=== PATIENT | female | born 1980 | race Caucasian/White ===

== ENCOUNTER 2017-09-26 20:10 | Emergency (ER) | payer MEDICAID ==
[~2017-09-26] VITALS: Ht 154.9 cm; Wt 68.0 kg
[2017-09-26 20:10] VITALS: BP 123/76
--- NOTE | 2017-09-26 20:12 | NUR ---
Dr. Luna evaluating patient.
--- NOTE | 2017-09-26 20:13 | NUR ---
PT EDGAR ALS. TAKEN TO BED 2
--- NOTE | 2017-09-26 20:15 | NUR ---
PT BIB AMBULANCE .ALOC s/p sz, unknown duration, lowered to ground, no trauma . HOOKED PT ON BEDSIDE MONITOR, ON ROOM AIR, NO S/S OF RESPITRATORY DISTRESS NOTED. DENIES N/V/D; SKIN IS PINK/WARM/DRY; LUNGS CLEAR BL; HR EVEN AND REGULAR; PT DENIES ANY FEVER, CP, SOB, OR COUGH AT THIS TIME; PATIENT STATES PAIN OF 0/10 AT THIS TIME; VSS; PATIENT POSITIONED FOR COMFORT; HOB ELEVATED; BEDRAILS UP X2; BED DOWN. ER MD MADE AWARE OF PT STATUS.
[2017-09-26] MEDS ORDERED: NACL 0.9% 1,000 ML IV ONE (20:20)
[2017-09-26 20:55] LABS: BASOPHILS % (AUTO) 0.3 % (0.0-2.0); EOSINOPHILS % (AUTO) 0.1 % (0.0-4.0); HEMATOCRIT 36.3 % (36-48); HEMOGLOBIN 11.1 g/dL (12.0-16.0); LYMPHOCYTES # (AUTO) 2.5 K/uL (2.5-16.5); LYMPHOCYTES % (AUTO) 21.2 % (20.5-51.1); MEAN CORPUSCULAR HEMOGLOBIN 21 pg (27-31); MEAN CORPUSCULAR HGB CONC 31 g/dL (33-37); MEAN CORPUSCULAR VOLUME 69.1 fL (80-94); MONOCYTES # (AUTO) 0.7 K/uL (0.8-1.0); MONOCYTES % (AUTO) 5.5 % (1.7-9.3); NEUTROPHILS # (AUTO) 8.6 K/uL (1.8-7.7); NEUTROPHILS % (AUTO) 72.9 % (42.2-75.2); PLATELET COUNT (AUTO) 384 K/uL (140-450); RED BLOOD CELL COUNT(AUTO) 5.26 MIL/uL (4.20-5.40); RED CELL DISTRIBUTION WIDTH 16.4 % (11.6-13.7); WHITE BLOOD COUNT (AUTO) 11.8 K/uL (4.8-10.8)
[2017-09-26 21:16] LABS: ANION GAP 16.8 (8-16); CARBON DIOXIDE 21.5 mmol/L (21-32); CHLORIDE 100 mmol/L (98-107); CREATININE 0.6 mg/dL (0.6-1.3); GFR ARICAN-AMERICAN 144 mL/min (>90); GLUCOSE 316 mg/dL (74-106); POTASSIUM 3.3 mmol/L (3.5-5.1); SODIUM SERUM 135 mmol/L (136-145); UREA NITROGEN, BLOOD 14 mg/dL (7-18)
[2017-09-26 21:17] LABS: PHENOBARBITAL 5 ug/ml (15-40)
[2017-09-26 21:23] LABS: ACETAMINOPHEN < 0.5 ug/ml (10-30); ALBUMIN 3.2 g/dL (3.4-5.0); ASPARTATE AMINOTRANSFERASE 11 U/L (15-37); SALICYLATE < 2.8 mg/dL (2.8-20.0); TOTAL BILIRUBIN 0.2 mg/dL (0.0-1.0)
[2017-09-26] MEDS ORDERED: PHENobarbital 65 MG/ML VIAL IV ONE (21:25)
--- NOTE | 2017-09-26 21:57 | NUR ---
Dr. Luna re-evaluating patient at bedside.
[2017-09-26 22:20] VITALS: BP 125/72
--- NOTE | 2017-09-26 22:20 | NUR ---
Patient discharged with v/s stable. Written and verbal after care instructions given and explained. Patient alert, oriented and verbalized understanding of instructions. Ambulatory with steady gait. All questions addressed prior to discharge. ID band removed. Patient advised to follow up with NEUROLOGIST, ADDRESS GIVEN, PRINTED BY DR. DICKINSON. Rx of PHENOBARBITAL given. Patient educated on indication of medication including possible reaction and side effects. Opportunity to ask questions provided and answered.
[2017-09-26 22:22] LABS: BARBITURATE, URINE POS. ng/ml (NEG <=200); BENZODIAZEPINE, URINE NEG. ng/mL (NEG <=200); CANNABINOID, URINE NEG. ng/mL (NEG <=50); COCAINE, URINE NEG. ng/mL (NEG <=300); OPIATE, URINE NEG. ng/mL (NEG <=2000); PHENCYCLIDINE SCREEN,URINE NEG. ng/mL (NEG <=25)
== END 2017-09-26 22:20 | disposition home or self-care (01) ==
LOC: MED 20:10
DX: R56.9 Unspecified convulsions (principal); E11.9 Type 2 diabetes mellitus without complications; Z88.8 Allergy status to other drugs, medicaments and biological substances
CPT/HCPCS: 36415; 80053; 80184; 80305; 81025; 85025; 93005; 96361; 96374; 99285; G0480; G0482; J2560

== ENCOUNTER 2019-03-25 15:01 | Emergency (ER) | payer MEDICAID ==
[~2019-03-25] VITALS: Ht 152.4 cm; Wt 81.6 kg
[2019-03-25 15:03] VITALS: BP 148/94
--- NOTE | 2019-03-25 15:09 | NUR ---
38/F [facility] FOR WITNESSED SEIZURE OF UNKNOWN LENGTH OF TIME. LOC AND FELL ONTO GROUND. MAY HAVE HIT HEAD BUT PT IS ONLY C/O RT SIDE BACK PAIN 02/03 AT THIS TIME. STATES HIT RT BACK DURING FALL. NO ORAL TRAUMA NOTED. IN C-SPINE COLLAR NOW. DENIES BOWEL AND BLADDER INCONTINENCE. HX- SZ RX- PHENOBARBITAL, TUMS
[2019-03-25] MEDS ORDERED: NACL 0.9% 1,000 ML IV ONE (15:15)
[2019-03-25 15:53] LABS: HEMATOCRIT 47.2 % (36-48); HEMOGLOBIN 15.6 g/dL (12.0-16.0); MEAN CORPUSCULAR HEMOGLOBIN 28 pg (27-31); MEAN CORPUSCULAR HGB CONC 33 g/dL (33-37); MEAN CORPUSCULAR VOLUME 85.8 fL (80-94); PLATELET COUNT (AUTO) 256 K/uL (140-450); RED CELL DISTRIBUTION WIDTH 14.2 % (11.6-13.7); WHITE BLOOD COUNT (AUTO) 10.4 K/uL (4.8-10.8)
[2019-03-25 15:54] LABS: BASOPHILS # (AUTO) 0.1 K/uL (0.00-0.22); BASOPHILS % (AUTO) 1.1 % (0.0-2.0); EOSINOPHILS % (AUTO) 0.2 % (0.0-4.0); LYMPHOCYTES # (AUTO) 2.5 K/uL (2.5-16.5); LYMPHOCYTES % (AUTO) 23.9 % (20.5-51.1); MONOCYTES # (AUTO) 0.5 K/uL (0.8-1.0); MONOCYTES % (AUTO) 4.8 % (1.7-9.3); NEUTROPHILS # (AUTO) 7.3 K/uL (1.8-7.7)
[2019-03-25 16:03] LABS: ANION GAP 18.2 (8-16); CARBON DIOXIDE 20.4 mmol/L (21-32); CHLORIDE 100 mmol/L (98-107); GLUCOSE 389 mg/dL (74-106); POTASSIUM 3.6 mmol/L (3.5-5.1); SODIUM SERUM 135 mmol/L (136-145)
[2019-03-25 16:04] LABS: ALBUMIN 3.2 g/dL (3.4-5.0); ASPARTATE AMINOTRANSFERASE 11 U/L (15-37); CREATININE 0.4 mg/dL (0.6-1.3); GFR ARICAN-AMERICAN 227 mL/min (>90); TOTAL BILIRUBIN 0.3 mg/dL (0.0-1.0); UREA NITROGEN, BLOOD 14 mg/dL (7-18)
[2019-03-25 16:05] LABS: ACETAMINOPHEN < 0.5 ug/ml (10-30); SALICYLATE < 2.8 mg/dL (2.8-20.0)
--- NOTE | 2019-03-25 16:45 | NUR ---
US AT BEDSIDE. UNABLE TO OBTAIN IV ACCESS AT THIS TIME. WILL TRY AGAIN AFTER US COMPLETES.
[2019-03-25 17:27] LABS: APPEARANCE,URINE HAZY (CLEAR); BILIRUBIN,URINE NEGATIVE (NEGATIVE); BLOOD, URINE NEGATIVE (NEGATIVE); COLOR,URINE YELLOW (YELLOW); LEUKOCYTE ESTERASE ,URINE NEGATIVE (NEGATIVE); NITRITE, URINE NEGATIVE (NEGATIVE); PH,URINE 5.5 (5.0-9.0); UGLUCOSE 3+ (NEGATIVE)
[2019-03-25 17:38] LABS: BARBITURATE, URINE POSITIVE ng/ml (NEG <=200)
[2019-03-25 17:39] LABS: BENZODIAZEPINE, URINE NEGATIVE ng/mL (NEG <=200); CANNABINOID, URINE NEGATIVE ng/mL (NEG <=50); COCAINE, URINE NEGATIVE ng/mL (NEG <=300); OPIATE, URINE NEGATIVE ng/mL (NEG <=2000); PHENCYCLIDINE SCREEN,URINE NEGATIVE ng/mL (NEG <=25)
[2019-03-25] MEDS ORDERED: PHENobarbital 65 MG/ML VIAL IM ONE (18:35)
[2019-03-25 19:08] VITALS: BP 123/86
--- NOTE | 2019-03-25 19:08 | NUR ---
Patient discharged with v/s stable. Written and verbal after care instructions given and explained. Patient verbalized understanding. Ambulatory with steady gait. All questions addressed prior to discharge. Advised to follow up with PMD.
== END 2019-03-25 19:08 | disposition home or self-care (01) ==
LOC: MED 15:01
DX: G40.89 Other seizures (principal); E11.9 Type 2 diabetes mellitus without complications; Z88.8 Allergy status to other drugs, medicaments and biological substances
CPT/HCPCS: 36415; 76801; 80053; 80184; 80305; 81003; 84702; 85025; 86900; 86901; 93005; 96372; 99284; G0480; G0482; J2560; J7030; Q0092

== ENCOUNTER 2019-07-18 18:11 | Inpatient (IN) | payer MEDICAID ==
[~2019-07-18] VITALS: Ht 165.1 cm; Wt 81.6 kg
[2019-07-18] MEDS ORDERED: LORazepam 2 MG/ML VIAL IVP ONE ×2 (18:25→19:00)
[2019-07-18] MEDS ORDERED: NACL 0.9% 1,000 ML IV ONE ×2 (18:25→19:35)
[2019-07-18 18:27] VITALS: BP 167/83
--- NOTE | 2019-07-18 18:35 | NUR ---
38YO F BIBA DUE TO ALOC. PT WAS SAID TO BE FOUND BY WITNESSES IN THE PARKING LOT OF [employer] SEIZING. ON THE WAY TO ER, [facility] WITNESSED TONIC CLONIC SEIZURE LASTING FOR 40 SECS. BS= 144. VS 160/90, HR 137, SAT 99% @15L O2. IN ER, PT APPEARS TO BE ON POST ICTAL STATE, RESPONDS TO STERNAL RUB.
--- NOTE | 2019-07-18 18:39 | NUR ---
LAB AT BEDSIDE.
[2019-07-18 18:55] LABS: BASOPHILS # (AUTO) 0.2 K/uL (0.00-0.22); BASOPHILS % (AUTO) 1.2 % (0.0-2.0); EOSINOPHILS % (AUTO) 0.1 % (0.0-4.0); HEMATOCRIT 47.5 % (36-48); HEMOGLOBIN 15.4 g/dL (12.0-16.0); LYMPHOCYTES # (AUTO) 2.9 K/uL (2.5-16.5); LYMPHOCYTES % (AUTO) 22.2 % (20.5-51.1); MEAN CORPUSCULAR HEMOGLOBIN 27 pg (27-31); MEAN CORPUSCULAR HGB CONC 32 g/dL (33-37); MEAN CORPUSCULAR VOLUME 84.6 fL (80-94); MONOCYTES # (AUTO) 0.5 K/uL (0.8-1.0); MONOCYTES % (AUTO) 3.7 % (1.7-9.3); NEUTROPHILS # (AUTO) 9.5 K/uL (1.8-7.7); NEUTROPHILS % (AUTO) 72.8 % (42.2-75.2); PLATELET COUNT (AUTO) 240 K/uL (140-450); RED BLOOD CELL COUNT(AUTO) 5.62 MIL/uL (4.20-5.40); RED CELL DISTRIBUTION WIDTH 14.4 % (11.6-13.7); WHITE BLOOD COUNT (AUTO) 13.1 K/uL (4.8-10.8)
--- NOTE | 2019-07-18 19:00 | NUR ---
REPORT RECEIVED FROM SHAWN MOORE
--- NOTE | 2019-07-18 19:10 | NUR ---
STRAIGHT CATH ATTEMPTED; UNSUCCESSFUL. IV ATTEMPT X2 UNSUCCESSFUL.
[2019-07-18 19:18] LABS: ALBUMIN 3.4 g/dL (3.4-5.0); ANION GAP 25.5 (8-16); ASPARTATE AMINOTRANSFERASE 11 U/L (15-37); CARBON DIOXIDE 14.6 mmol/L (21-32); CHLORIDE 97 mmol/L (98-107); CREATININE 0.9 mg/dL (0.6-1.3); GFR ARICAN-AMERICAN 89 mL/min (>90); POTASSIUM 3.1 mmol/L (3.5-5.1); SODIUM SERUM 134 mmol/L (136-145); TOTAL BILIRUBIN 0.2 mg/dL (0.0-1.0); UREA NITROGEN, BLOOD 9 mg/dL (7-18)
[2019-07-18 19:25] LABS: ACETAMINOPHEN < 0.5 ug/ml (10-30); GLUCOSE 459 mg/dL (74-106); SALICYLATE < 2.8 mg/dL (2.8-20.0)
[2019-07-18] MEDS ORDERED: INSULIN REGULAR, HUMAN 100 UNIT/ML VIAL IVP ONE (19:35)
[2019-07-18 19:48] LABS: PHENOBARBITAL 4 ug/ml (15-40)
--- NOTE | 2019-07-18 19:50 | NUR ---
STRAIGHT CATH; URINE OBTAINED; SENT TO LAB
--- NOTE | 2019-07-18 19:58 | NUR ---
X-Ray at bedside.
[2019-07-18 20:13] LABS: APPEARANCE,URINE CLEAR (CLEAR); BILIRUBIN,URINE NEGATIVE (NEGATIVE); BLOOD, URINE TRACE-I (NEGATIVE); COLOR,URINE YELLOW (YELLOW); LEUKOCYTE ESTERASE ,URINE NEGATIVE (NEGATIVE); NITRITE, URINE NEGATIVE (NEGATIVE); PH,URINE 5.5 (5.0-9.0); UGLUCOSE 3+ (NEGATIVE)
[2019-07-18] MEDS: NACL 0.9% 1,000 ML IV SCH (20:13)
[2019-07-18] MEDS ORDERED: DEXTROSE 50% 50 ML SYR IVP PRN (20:15)
[2019-07-18] MEDS ORDERED: ONDANSETRON 4 MG/2 ML VIAL IVP PRN (20:15)
[2019-07-18] MEDS ORDERED: ACETAMINOPHEN 325 MG TAB PO PRN (20:15)
--- NOTE | 2019-07-18 20:15 | NUR ---
12 UNITS SQ INSULIN GIVEN; WILL CONTINUE TO MONITOR
--- NOTE | 2019-07-18 20:20 | NUR ---
EJ ATTEMPTED X2; UNSUCCESSFUL
--- NOTE | 2019-07-18 20:30 | NUR ---
IV ATTEMPTED X2. SUCCESSFUL ATTEMPT IN LEFT FOOT. NS IVF BOLUS STARTED.
[2019-07-18 20:32] LABS: BARBITURATE, URINE NEGATIVE ng/ml (NEG <=200); BENZODIAZEPINE, URINE NEGATIVE ng/mL (NEG <=200); CANNABINOID, URINE NEGATIVE ng/mL (NEG <=50); COCAINE, URINE NEGATIVE ng/mL (NEG <=300); OPIATE, URINE NEGATIVE ng/mL (NEG <=2000); PHENCYCLIDINE SCREEN,URINE NEGATIVE ng/mL (NEG <=25); RBC,URINE 0-5 /HPF (0-5); WBC,URINE NONE SEEN /HPF (0-5)
--- NOTE | 2019-07-18 20:48 | NUR ---
UNABLE TO OBTAINE AT THIS TIME. PT CONFUSED AND UNABLE TO ANSWER QUESTIONS APPROPRIATELY.
[2019-07-18 21:00] LABS: PROTHROMBIN TIME 10.5 secs (10.8-13.4)
[2019-07-18] MEDS: DOCUSATE SODIUM 100 MG GELCAP PO SCH (21:00)
--- NOTE | 2019-07-18 21:00 | NUR ---
PATIENT IS AWAKE AND IN STABLE CONDITION. NO C/O PAIN. NO S/SX ACUTE DISTRESS. SEIZURE PRECAUTIONS IN PLACE. CALL LIGHT WITHIN REACH. WILL CONTINUE TO MONITOR. Addendum: 07/19/19 at 2342 by Simi Chisholm RN WRONG DATE. AMEND TO 07/18/19.
[2019-07-18 21:05] LABS: FREE T4 (FREE THYROXINE) 1.07 ng/dL (0.76-1.46); MAGNESIUM 1.6 mg/dL (1.8-2.4); PHOSPHORUS 3.7 mg/dL (2.5-4.9); THYROID STIMULATING HORMONE 1.53 uIU/mL (0.34-3.74)
--- NOTE | 2019-07-18 21:21 | NUR ---
PT RETURN FROM CT
--- NOTE | 2019-07-18 21:30 | NUR ---
POC BG 282
[2019-07-18] MEDS ORDERED: PHEN-1438 PO ×2 (21:51→23:46)
--- NOTE | 2019-07-18 21:55 | NUR ---
RECEIVED PATIENT FROM ER VIA GURNEY. RESPIRATIONS EVEN, UNLABORED. NO S/SX RESPIRATORY DISTRESS. IV SITE TO LEFT FOOT 22G PATENT/INTACT, INFUSING FLUIDS WELL. IV SITE NOTED TO RIGHT HAND 22G, PATENT/INTACT. SKIN ASSESSMENT COMPLETE. SKIN IS INTACT. MRSA SCREEN COMPLETED. ORIENTED PATIENT TO ROOM, STAFF AND CALL LIGHT. NO C/O PAIN. NO S/SX ACUTE DISTRESS. SEIZURE PRECAUTIONS IN PLACE. SAFETY PRECAUTIONS IN PLACE. CALL LIGHT WITHIN REACH. WILL CONTINUE TO MONITOR.
--- NOTE | 2019-07-18 22:05 | NUR ---
Patient will be admitted to care of [facility]. Admited to TELEMETRY. Will go to room 124A. Belongings list completed. Report to SHAWN HERNANDEZ.
[2019-07-18] MEDS ORDERED: hydrALAZINE 20 MG/ML VIAL IVP SCH (22:15)
[2019-07-18] MEDS ORDERED: levETIRAcetam 1,000 MG in NACL 0.9% 100 ML IV SCH (22:15)
[2019-07-18] MEDS: BLOOD GLUCOSE MONITORING 1 DEV DEV FS SCH (22:50)
[2019-07-18] MEDS: INSULIN LISPRO SLIDING SCALE 100 UNITS/ML VIAL SUBQ PRN (22:50)
--- NOTE | 2019-07-18 23:30 | NUR ---
PATIENT IN STABLE CONDITION. NO C/O PAIN. NO S/SX ACUTE DISTRESS. CALL LIGHT WITHIN REACH. WILL CONTINUE TO MONITOR.
[2019-07-18] MEDS ORDERED: levETIRAcetam 100 MG/ML VIAL IV ONE (23:45)
[2019-07-18] MEDS ORDERED: GLIP10TA3 PO (23:46)
[2019-07-18] MEDS ORDERED: FURO-572 PO ×2 (23:46→23:51)
[2019-07-18] MEDS ORDERED: POTASSIUM CHLORIDE 10 MEQ TABER PO SCH (23:50)
[2019-07-19] VITALS: BP 140/79
[2019-07-19 00:25] LABS: BASOPHILS # (AUTO) 0.1 K/uL (0.00-0.22); EOSINOPHILS % (AUTO) 0.3 % (0.0-4.0); HEMATOCRIT 41.7 % (36-48); HEMOGLOBIN 13.7 g/dL (12.0-16.0); LYMPHOCYTES % (AUTO) 23.1 % (20.5-51.1); MEAN CORPUSCULAR HEMOGLOBIN 27 pg (27-31); MEAN CORPUSCULAR HGB CONC 33 g/dL (33-37); MEAN CORPUSCULAR VOLUME 83.3 fL (80-94); MONOCYTES # (AUTO) 0.6 K/uL (0.8-1.0); MONOCYTES % (AUTO) 4.7 % (1.7-9.3); NEUTROPHILS # (AUTO) 9.3 K/uL (1.8-7.7); NEUTROPHILS % (AUTO) 70.9 % (42.2-75.2); PLATELET COUNT (AUTO) 241 K/uL (140-450); RED BLOOD CELL COUNT(AUTO) 5.01 MIL/uL (4.20-5.40); RED CELL DISTRIBUTION WIDTH 14.4 % (11.6-13.7); WHITE BLOOD COUNT (AUTO) 13.2 K/uL (4.8-10.8)
[2019-07-19] MEDS: LISINOPRIL 20 MG TAB PO SCH ×2 (00:27→09:00)
[2019-07-19 00:38] LABS: ANION GAP 12.3 (8-16); CARBON DIOXIDE 23.8 mmol/L (21-32); CREATININE 0.4 mg/dL (0.6-1.3); POTASSIUM 3.1 mmol/L (3.5-5.1)
[2019-07-19 00:53] LABS: MAGNESIUM 1.6 mg/dL (1.8-2.4); PHOSPHORUS 2.6 mg/dL (2.5-4.9)
--- NOTE | 2019-07-19 01:05 | NUR ---
PATIENT ASLEEP AND IN STABLE CONDITION. NO C/O PAIN. NO S/SX ACUTE DISTRESS. CALL LIGHT WITHIN REACH. WILL CONTINUE TO MONITOR.
[2019-07-19] MEDS ORDERED: MAG SULF 2000 MG/WATER PREMIX 50 ML IV SCH (03:00)
--- NOTE | 2019-07-19 03:02 | NUR ---
MADE ROUNDS. PATIENT CURRENTLY ASLEEP AND IN STABLE CONDITION. NO C/O PAIN. NO S/SX ACUTE DISTRESS. CALL LIGHT WITHIN REACH. WILL CONTINUE TO MONITOR.
[2019-07-19 04:00] VITALS: BP 95/57
--- NOTE | 2019-07-19 05:05 | NUR ---
PATIENT PULLED OUT IV SITE RIGHT WRIST 24G. CANNULA INTACT. CHANGED IV FLUIDS TO LEFT FOOT 22G, INFUSING WELL. CALL LIGHT WITHIN REACH. WILL CONTINUE TO MONITOR.
[2019-07-19] MEDS: NACL 0.9% 1,000 ML IV SCH (05:39)
[2019-07-19 05:50] LABS: CHOL/HDL RATIO 5.8 (1-4.5); MAGNESIUM 1.8 mg/dL (1.8-2.4); PHOSPHORUS 3.3 mg/dL (2.5-4.9)
[2019-07-19 06:16] LABS: BASOPHILS # (AUTO) 0.1 K/uL (0.00-0.22); BASOPHILS % (AUTO) 0.8 % (0.0-2.0); EOSINOPHILS % (AUTO) 0.2 % (0.0-4.0); HEMATOCRIT 40.8 % (36-48); HEMOGLOBIN 13.5 g/dL (12.0-16.0); LYMPHOCYTES # (AUTO) 2.9 K/uL (2.5-16.5); LYMPHOCYTES % (AUTO) 26.1 % (20.5-51.1); MEAN CORPUSCULAR HEMOGLOBIN 28 pg (27-31); MEAN CORPUSCULAR HGB CONC 33 g/dL (33-37); MEAN CORPUSCULAR VOLUME 83.5 fL (80-94); MONOCYTES # (AUTO) 0.7 K/uL (0.8-1.0); MONOCYTES % (AUTO) 6.3 % (1.7-9.3); NEUTROPHILS # (AUTO) 7.3 K/uL (1.8-7.7); NEUTROPHILS % (AUTO) 66.6 % (42.2-75.2); PLATELET COUNT (AUTO) 242 K/uL (140-450); RED BLOOD CELL COUNT(AUTO) 4.88 MIL/uL (4.20-5.40); RED CELL DISTRIBUTION WIDTH 14.6 % (11.6-13.7); WHITE BLOOD COUNT (AUTO) 10.9 K/uL (4.8-10.8)
[2019-07-19 06:40] LABS: ANION GAP 14.5 (8-16); CARBON DIOXIDE 21.7 mmol/L (21-32); CREATININE 0.5 mg/dL (0.6-1.3); POTASSIUM 3.2 mmol/L (3.5-5.1)
[2019-07-19] MEDS: BLOOD GLUCOSE MONITORING 1 DEV DEV FS SCH ×4 (06:43→20:30)
[2019-07-19] MEDS: INSULIN LISPRO SLIDING SCALE 100 UNITS/ML VIAL SUBQ PRN ×4 (06:44→20:20)
--- NOTE | 2019-07-19 07:27 | NUR ---
ENDORSED PATIENT IN STABLE CONDITION TO AM SHIFT NURSE FOR CONTINUITY OF CARE.
--- NOTE | 2019-07-19 07:28 | NUR ---
RECEIVED REPORT FROM ICT SALES REPRESENTATIVE RN FOR CONTINUITY OF CARE. PT IS AAOX3, LETHARGIC BUT AROUSABLE TO LIGHT STIMULATION. PT ON RA SATING 98%. SKIN INTACT. DISCUSSED POC WITH PT AND PT VERBALIZED UNDERSTANDING. SAFETY MEASURES IN PLACE. WILL ROUND FREQUENTLY THROUGHOUT THE SHIFT.
[2019-07-19 08:00] VITALS: BP 100/63
--- NOTE | 2019-07-19 08:49 | NUR ---
PATIENT HAS BEEN SCREENED AND CATEGORIZED MODERATE NUTRITION RISK. PATIENT WILL BE SEEN WITHIN 3-5 DAYS OF ADMISSION. 07/21/19 07/23/[address]
[2019-07-19] MEDS: DOCUSATE SODIUM 100 MG GELCAP PO SCH ×2 (09:00→20:23)
[2019-07-19] MEDS ORDERED: levETIRAcetam 500 MG TAB PO SCH (09:00)
[2019-07-19] MEDS ORDERED: levETIRAcetam 1,000 MG in NACL 0.9% 100 ML IV SCH (09:00)
--- NOTE | 2019-07-19 09:12 | NUR ---
ADMINISTERED MORNING MEDS TO PT. PT TOLERATED WELL. ALL NEEDS MET. WILL CONTINUE TO ROUND ON PT. BE DIN LOW POSITION, CALL LIGHT WITHIN REACH.
[2019-07-19] MEDS: glipiZIDE ER 5 MG TABER PO SCH (09:32)
[2019-07-19] MEDS: PHENobarbital 30 MG TAB PO SCH ×2 (09:32→20:23)
[2019-07-19] MEDS: metFORMIN 500 MG TAB PO SCH ×2 (09:32→17:54)
[2019-07-19] MEDS ORDERED: POTASSIUM CHLORIDE 40 MEQ, LIDOCAINE MPF 1% 25 MG in NACL 0.9% 250 ML IV SCH (11:00)
--- NOTE | 2019-07-19 11:17 | NUR ---
DC PLANNING 38 YRS OLD FEMALE PATIENT WAS ADMITTED FROM HOME WITH A DX OF SEIZURE AND HHS. PT HAS A HX OF SZ DM AND HTN. CXRAY SHOWED NO ACUTE CARDIOPULMONARY PROCESS. STARTED IVF, IV LASIX AND KEPPRA IV. CONSULTED WITH NEUROLOGIST DR DELEON. DC PLAN TO GO HOME WHEN STABLE . CM TO FOLLOW.
--- NOTE | 2019-07-19 11:24 | NUR ---
PT RESTING IN BED. ALL NEEDS MET.
--- NOTE | 2019-07-19 11:32 | NUR ---
PT SEEMS MORE AWAKE. ABLE TO HOLD A CONVERSATION BETTER. ILL CONTINUE TO ROUND ON PT.
[2019-07-19 12:00] VITALS: BP 100/63
--- NOTE | 2019-07-19 13:41 | NUR ---
PT RESTING IN BED TALKING ON PHONE. ALL NEEDS MET. WILL CONTINUE TO ROUND ON PT.
--- NOTE | 2019-07-19 14:59 | NUR ---
Actos meds found at bedside, will send to pharmacy.
--- NOTE | 2019-07-19 15:24 | NUR ---
PT PULLED IV OUT. SHE IS HARD STICK. I WAS UNABLE TO GET IV SO CHARGE NURSE ROB WILL TRY. PT POTASSIUM IS HALF WAY DONE. WILL CONTINUE MED WHEN NE IV IS INSERTED.
[2019-07-19 16:00] VITALS: BP 124/75
--- NOTE | 2019-07-19 17:42 | NUR ---
PT SLEEPING IN BED. ALL NEEDS MET. WILL CONTINUE TO ROUND ON PT.
--- NOTE | 2019-07-19 19:25 | NUR ---
ENDORSED PT TO CAUSTIC PLANT WORKER FOR CONTINUITY OF CARE. PT IN STABLE CONDITION AT THIS TIME.
--- NOTE | 2019-07-19 19:25 | NUR ---
RECEIVED PATIENT FROM AM SHIFT NURSE IN STABLE CONDITION FOR CONTINUITY OF CARE. RESPIRATIONS EVEN, UNLABORED. IV SITE NOTED TO LEFT HAND 24G, PATENT/INTACT. NO C/O PAIN. NO S/SX ACUTE DISTRESS. SEIZURE PRECAUTIONS IN PLACE. CALL LIGHT WITHIN REACH. WILL CONTINUE TO MONITOR.
[2019-07-19 20:00] VITALS: BP 116/64
[2019-07-19] MEDS: levETIRAcetam 500 MG TAB PO SCH (20:23)
--- NOTE | 2019-07-19 21:00 | NUR ---
PATIENT IS AWAKE AND IN STABLE CONDITION. NO C/O PAIN. NO S/SX ACUTE DISTRESS. CALL LIGHT WITHIN REACH. WILL CONTINUE TO MONITOR.
--- NOTE | 2019-07-19 22:06 | NUR ---
ASSISTED PATIENT TO THE BATHROOM. GAIT IS STEADY. PATIENT VOIDED WELL. PATIENT CONTINUES IN STABLE CONDITION. NO C/O PAIN. NO S/SX ACUTE DISTRESS. CALL LIGHT WITHIN REACH. WILL CONTINUE TO MONITOR.
--- NOTE | 2019-07-19 23:43 | NUR ---
PATIENT IS ASLEEP AND IN STABLE CONDITION. NO C/O PAIN. NO S/SX ACUTE DISTRESS. CALL LIGHT WITHIN REACH. WILL CONTINUE TO MONITOR.
[2019-07-20] VITALS: BP 121/77
--- NOTE | 2019-07-20 01:32 | NUR ---
MADE ROUNDS. PATIENT IS ASLEEP AND IN STABLE CONDITION. NO C/O PAIN. NO S/SX ACUTE DISTRESS. CALL LIGHT WITHIN REACH. WILL CONTINUE TO MONITOR.
--- NOTE | 2019-07-20 03:01 | NUR ---
PATIENT IS ASLEEP AND IN STABLE CONDITION. NO C/O PAIN. NO S/SX ACUTE DISTRESS. CALL LIGHT WITHIN REACH. WILL CONTINUE TO MONITOR.
[2019-07-20 04:00] VITALS: BP 108/72
--- NOTE | 2019-07-20 05:17 | NUR ---
PATIENT IS AWAKE AND IN STABLE CONDITION. NO C/O PAIN. NO S/SX ACUTE DISTRESS. CALL LIGHT WITHIN REACH. WILL CONTINUE TO MONITOR.
[2019-07-20 05:57] LABS: BASOPHILS # (AUTO) 0.1 K/uL (0.00-0.22); BASOPHILS % (AUTO) 0.6 % (0.0-2.0); EOSINOPHILS % (AUTO) 0.6 % (0.0-4.0); HEMATOCRIT 41.2 % (36-48); HEMOGLOBIN 13.5 g/dL (12.0-16.0); LYMPHOCYTES # (AUTO) 3.1 K/uL (2.5-16.5); LYMPHOCYTES % (AUTO) 35.7 % (20.5-51.1); MEAN CORPUSCULAR HEMOGLOBIN 28 pg (27-31); MEAN CORPUSCULAR HGB CONC 33 g/dL (33-37); MEAN CORPUSCULAR VOLUME 84.5 fL (80-94); MONOCYTES # (AUTO) 0.6 K/uL (0.8-1.0); MONOCYTES % (AUTO) 6.5 % (1.7-9.3); NEUTROPHILS % (AUTO) 56.6 % (42.2-75.2); PLATELET COUNT (AUTO) 243 K/uL (140-450); RED BLOOD CELL COUNT(AUTO) 4.87 MIL/uL (4.20-5.40); RED CELL DISTRIBUTION WIDTH 14.9 % (11.6-13.7); WHITE BLOOD COUNT (AUTO) 8.8 K/uL (4.8-10.8)
[2019-07-20 06:30] LABS: MAGNESIUM 1.7 mg/dL (1.8-2.4); PHOSPHORUS 3.4 mg/dL (2.5-4.9)
[2019-07-20] MEDS: BLOOD GLUCOSE MONITORING 1 DEV DEV FS SCH ×2 (06:30→12:20)
[2019-07-20] MEDS: INSULIN LISPRO SLIDING SCALE 100 UNITS/ML VIAL SUBQ PRN ×2 (06:30→12:21)
[2019-07-20] MEDS ORDERED: LEVE1000 PO (06:30)
[2019-07-20 06:33] LABS: ANION GAP 12.7 (8-16); CARBON DIOXIDE 25.2 mmol/L (21-32); CREATININE 0.4 mg/dL (0.6-1.3); POTASSIUM 3.9 mmol/L (3.5-5.1)
[2019-07-20] MEDS ORDERED: METF500T PO (06:38)
[2019-07-20] MEDS ORDERED: MAGNESIUM OXIDE 400 MG TAB PO SCH (07:08)
--- NOTE | 2019-07-20 07:17 | NUR ---
ENDORSED PATIENT IN STABLE CONDITION TO AM SHIFT NURSE FOR CONTINUITY OF CARE.
--- NOTE | 2019-07-20 07:43 | NUR ---
RECEIVED REPORT FROM NIGHT NURSE . PT IS IN STABLE CONDITION, AWAKE AND AMBULATORY, NO DISTRESS NOTED AND DENIES PAIN.. RESPIRATION IS EVEN AND UNLABORED ON ROOM AIR. IV IN PLACE, INTACT AND PATENT AT L HAND G24. SAFETY MEASURES IN PLACE AND CALL LIGHT WITHIN REACH. REVIEWED AND WILL CONTINUE CURRENT CARE PLAN.
[2019-07-20 08:00] VITALS: BP 140/88
[2019-07-20] MEDS ORDERED: PHEN-1438 PO ×3 (08:24→08:55)
[2019-07-20] MEDS: metFORMIN 500 MG TAB PO SCH (08:34)
[2019-07-20] MEDS: glipiZIDE ER 5 MG TABER PO SCH (08:34)
[2019-07-20] MEDS: DOCUSATE SODIUM 100 MG GELCAP PO SCH (08:37)
[2019-07-20] MEDS: PHENobarbital 30 MG TAB PO SCH (08:37)
[2019-07-20] MEDS: levETIRAcetam 500 MG TAB PO SCH (08:37)
[2019-07-20] MEDS: LISINOPRIL 20 MG TAB PO SCH (08:38)
--- NOTE | 2019-07-20 08:39 | NUR ---
ADMINISTERED HEPARIN SUB5 5,000 UNIT/ 1ML, UNABLE TO SCAN DUE TO SCANNER MALFUNCTION, VERIFIED WITH ANOTHER RN AND PLT 243, MED EDUCATION PROVIDED AND PT VERBALIZED OK. PT TOLERATED SUBQ WELL.
--- NOTE | 2019-07-20 08:42 | NUR ---
MEDICATIONS DUE GIVEN , EDUCATED ON MEDICATIONS USE. SAFETY MEASURES IN PLACE AND CALL LIGHT WITHIN REACH. WILL CONTINUE TO MONITOR.
--- NOTE | 2019-07-20 09:20 | NUR ---
INFORMED PT THAT SHE WILL BE DC HOME TODAY AND PT WAS AWARE AND STATED "I WILL NOTIFY MY BOYFRIEND TO COME PICK ME UP. I WILL LET YOU KNOW WHAT TIME." PT IS SITTING UP ON EDGE OF BED AND LOOKING AT HER PHONE. NO SIGNS OF DISTRESS NOTED. SAFETY MEASURES IN PLACE.
--- NOTE | 2019-07-20 11:15 | NUR ---
PATIENT IS IN STABLE CONDITION, SLEEPING, NOT IN DISTRESS AND DENIES PAIN. SAFETY MEASURES IN PLACE AND CALL LIGHT WITH IN REACH.WILL CONTINUE TO MONITOR.
[2019-07-20 12:00] VITALS: BP 134/86
--- NOTE | 2019-07-20 12:09 | NUR ---
PER PT, SHE IS UNABLE TO CALL HER BOYFRIEND AND HE DIDN'T ANSWER THE CALL. CALLED MR VOGT AND LEFT A MESSAGE IN [place] AND ASKED TO CALL BACK. AWAITING FOR CALL BACK FOR DC TIME. PT IS EATING LUNCH ON BED AT THIS TIME. NO SIGNS OF DISTRESS NOTED. TELE MONITOR ATTACHED. SAFETY MEASURES IN PLACE.
--- NOTE | 2019-07-20 12:21 | NUR ---
PT IS EATING HER LUNCH, ADMINISTERED 4 UNITS OF HUMALOG FOR BLOOD GLUCOSE 249, MED EDUCATION PROVIDED AND PT SAID OK. PT TOLERATED SUBQ WELL. NO SIGNS OF DISTRESS NOTED. TELE MONITOR ATTACHED. SAFETY MEASURES IN PLACE.
--- NOTE | 2019-07-20 13:09 | NUR ---
SPOKE WITH PT'S BOYFRIEND ON PT'S PHONE, MR VOGT AWARE THAT PT IS GOING TO DC HOME TODAY. PER MR VOGT, HE WILL ASK SOMEONE TO COME TO NURSE OBGYN PT AND HE WILL CALL PT TO LET HER KNOW. PT IS AWAKE AND RESTING ON BED IN HER ROOM. NO SIGNS OF DISTRESS NOTED. TELE MONITOR ATTACHED. SAFETY MEASURES IN PLACE.
--- NOTE | 2019-07-20 14:39 | NUR ---
RECEIVED A CALL FROM [facility] THAT PT'S FRIEND IS HERE TO BALLISTICS TEACHER PT. INFORMED PT AND PT IS GETTING READY.
--- NOTE | 2019-07-20 14:52 | NUR ---
DISCHARGE INSTRUCTION PROVIDED TO PT AT BEDSIDE. EDUCATED PT TO FOLLOW UP WITH MD AFTER DC, DISEASE MANAGEMENT, MEDICATION REGIMENS, SIDE EFFECTS, AND SEEK MEDICAL HELP IN CASE OF MEDICAL EMERGENCY. ANSWERED ALL PT'S QUESTIONS AND PT SAID OK. PT IS AWARE THAT HER PRESCRIPTION SEND TO HER PREFERRED PHARMACY. REMOVED ALL ID BANDS AND IV, IV INTACT AND COMPLETED. NO BLEEDING ON IV SITE. PT IS CHANGED INTO HER OWN CLOTHES. RETURNED HOME MED TO PT FROM PHARMACY. RETURNED TELE MONITOR TO GAME ENGINEER. DISCHARGE PACKET PROVIDED. PT TOOK ALL HER BELONGINGS. HIM SPECIALIST ESCORTED PT TO [facility]. PT IS GOING TO DC HOME ACCOMPANIED WITH FRIEND. PT IS IN STABLE CONDITION.
== END 2019-07-20 14:55 | disposition home or self-care (01) | DRG 53 ==
LOC: MED 18:11 → MTU 21:22
PROVIDERS: ADMIT General Practice; ATTEND General Practice
DX: G40.909 Epilepsy, unspecified, not intractable, without status epilepticus (principal); E11.00 Type 2 diabetes mellitus with hyperosmolarity without nonketotic hyperglycemic-hyperosmolar coma (NKHHC); R65.10 Systemic inflammatory response syndrome (SIRS) of non-infectious origin without acute organ dysfunction; E87.8 Other disorders of electrolyte and fluid balance, not elsewhere classified; E83.42 Hypomagnesemia; E87.1 Hypo-osmolality and hyponatremia; E87.6 Hypokalemia; I10 Essential (primary) hypertension; E66.9 Obesity, unspecified; Z68.30 Body mass index [BMI] 30.0-30.9, adult; Z71.3 Dietary counseling and surveillance; Z88.8 Allergy status to other drugs, medicaments and biological substances; Z79.84 Long term (current) use of oral hypoglycemic drugs; Z79.899 Other long term (current) drug therapy
CPT/HCPCS: 36415; 36600; 70450; 71045; 80048; 80053; 80184; 80305; 81001; 81025; 82009; 82140; 82150; 82550; 82803; 82948; 83036; 83690; 83735; 83880; 84100; 84439; 84443; 84484; 84702; 85025; 85610; 85730; 87081; 93005; 96374; 96376; 97161-GP; 99285; G0480; G0482; J0360; J1644; J1815; J1953; J2001; J2060; J3475; J3480; J7030

== ENCOUNTER 2020-03-02 12:13 | Emergency (ER) | payer MEDICAID ==
[~2020-03-02] VITALS: Ht 152.4 cm; Wt 74.8 kg
[~2020-03-02 12:13] MED LIST: FURO-572 PO; GLIP10TA3 PO; LEVE1000 PO; METF500T PO; PHEN-1438 PO
[2020-03-02 12:17] VITALS: BP 155/95
--- NOTE | 2020-03-02 12:30 | NUR ---
PATIENT PRESENTS TO ED WITH C/O SEIZURE . DENIES N/V/D; SKIN IS PINK/WARM/DRY; AAOX4 WITH EVEN AND STEADY GAIT; LUNGS CLEAR BL; HR EVEN AND REGULAR; PT DENIES ANY FEVER, CP, SOB, OR COUGH AT THIS TIME; PATIENT STATES PAIN OF 0/10 AT THIS TIME; VSS; PATIENT POSITIONED FOR COMFORT; HOB ELEVATED; BEDRAILS UP X2; BED DOWN. ER MD MADE AWARE OF PT STATUS.
[2020-03-02] MEDS ORDERED: NACL 0.9% 1,000 ML IV ONE ×2 (13:00→14:15)
[2020-03-02] MEDS ORDERED: PHENobarbital 30 MG TAB PO ONE (13:05)
[2020-03-02 13:41] LABS: BASOPHILS # (AUTO) 0.1 K/uL (0.00-0.22); BASOPHILS % (AUTO) 0.6 % (0.0-2.0); EOSINOPHILS % (AUTO) 0.1 % (0.0-4.0); HEMATOCRIT 46.5 % (36-48); HEMOGLOBIN 15.5 g/dL (12.0-16.0); LYMPHOCYTES # (AUTO) 1.8 K/uL (2.5-16.5); LYMPHOCYTES % (AUTO) 19.4 % (20.5-51.1); MEAN CORPUSCULAR HEMOGLOBIN 28 pg (27-31); MEAN CORPUSCULAR HGB CONC 33 g/dL (33-37); MONOCYTES # (AUTO) 0.5 K/uL (0.8-1.0); MONOCYTES % (AUTO) 5.9 % (1.7-9.3); NEUTROPHILS # (AUTO) 6.7 K/uL (1.8-7.7); PLATELET COUNT (AUTO) 273 K/uL (140-450); RED BLOOD CELL COUNT(AUTO) 5.53 MIL/uL (4.20-5.40); RED CELL DISTRIBUTION WIDTH 13.9 % (11.6-13.7); WHITE BLOOD COUNT (AUTO) 9.1 K/uL (4.8-10.8)
[2020-03-02 13:53] LABS: CARBON DIOXIDE 24.4 mmol/L (21-32); CREATININE 0.8 mg/dL (0.6-1.3); POTASSIUM 4.4 mmol/L (3.5-5.1)
[2020-03-02] MEDS ORDERED: PHENobarbital 30 MG TAB ONE (14:21)
[2020-03-02 15:57] VITALS: BP 155/95
--- NOTE | 2020-03-06 05:22 | NUR ---
LATE ENTRY- NORMAL SALINE 0.9% DISCONTINUED AT 1552
== END 2020-03-02 15:58 | disposition home or self-care (01) ==
LOC: MED 12:13
DX: R56.9 Unspecified convulsions (principal); E11.9 Type 2 diabetes mellitus without complications; Z88.8 Allergy status to other drugs, medicaments and biological substances; Z79.899 Other long term (current) drug therapy
CPT/HCPCS: 36415; 80048; 82803; 83036; 83735; 85025; 96360; 99291; J7030; 99284

== ENCOUNTER 2021-01-06 12:45 | Inpatient (IN) | payer MEDICAID ==
[~2021-01-06] VITALS: Ht 167.6 cm; Wt 74.8 kg
[2021-01-06 12:45] VITALS: BP 142/62
[~2021-01-06 12:45] MED LIST changes: -PHEN-1438 PO; +PHEN-2099 PO
--- NOTE | 2021-01-06 12:57 | NUR ---
PATIENT BIB EMS TO BED 7 AT THIS TIME
--- NOTE | 2021-01-06 13:00 | NUR ---
Seizure precautions in place
--- NOTE | 2021-01-06 13:00 | NUR ---
40 y/o F BIBA from home with c/c seizures. EMS states witnessed patient experience full tonic clonic seizure lasting 7 minutes in duration. EMS arrived on scene to find patient with fixed gazed with eyes skewed to Right side. Patient presented SpO2 92% on room air; placed on 10L via NRB now SpO2 98%. AccuChek 474. EMS states no oral trauma, fall, LOC. Pt +urinary incontinence. Pt placed into a gown. cardiac monitor in place. Bed locked in lowest position, side rails x 1, call light in reach. PMH: Seizures, HTN, DM Meds: Metformin, phenobarbital A: phenytoin
[2021-01-06] MEDS ORDERED: NACL 0.9% 1,000 ML IV ONE ×2 (13:25→14:45)
[2021-01-06] MEDS ORDERED: levETIRAcetam 1,000 MG in NACL 0.9% 100 ML IV ONE (13:30)
[2021-01-06] MEDS ORDERED: cefTRIAXone 1,000 MG VIAL ONE (13:36)
--- NOTE | 2021-01-06 13:38 | NUR ---
bloodwork collected and handced to labor employment associate bedside
--- NOTE | 2021-01-06 13:41 | NUR ---
X-Ray at bedside.
[2021-01-06 14:09] LABS: BASOPHILS % (AUTO) 0.4 % (0.0-2.0); EOSINOPHILS % (AUTO) 0.1 % (0.0-4.0); HEMATOCRIT 45.4 % (36-48); HEMOGLOBIN 15.4 g/dL (12.0-16.0); LYMPHOCYTES # (AUTO) 1.6 K/uL (2.5-16.5); LYMPHOCYTES % (AUTO) 16.2 % (20.5-51.1); MEAN CORPUSCULAR HEMOGLOBIN 29 pg (27-31); MEAN CORPUSCULAR HGB CONC 34 g/dL (33-37); MONOCYTES # (AUTO) 0.4 K/uL (0.8-1.0); MONOCYTES % (AUTO) 4.5 % (1.7-9.3); NEUTROPHILS # (AUTO) 7.7 K/uL (1.8-7.7); NEUTROPHILS % (AUTO) 78.8 % (42.2-75.2); PLATELET COUNT (AUTO) 247 K/uL (140-450); RED BLOOD CELL COUNT(AUTO) 5.28 MIL/uL (4.20-5.40); RED CELL DISTRIBUTION WIDTH 14.2 % (11.6-13.7); WHITE BLOOD COUNT (AUTO) 9.7 K/uL (4.8-10.8)
[2021-01-06 14:24] LABS: LIPASE 261 U/L (73-393)
[2021-01-06 14:27] LABS: ACETAMINOPHEN < 0.5 ug/ml (10-30); SALICYLATE < 2.8 mg/dL (2.8-20.0)
[2021-01-06 14:33] LABS: ALBUMIN 3.4 g/dL (3.4-5.0); ANION GAP 14.4 (8-16); CARBON DIOXIDE 21.5 mmol/L (21-32); CREATININE 0.7 mg/dL (0.6-1.3); POTASSIUM 3.9 mmol/L (3.5-5.1); TOTAL BILIRUBIN 0.2 mg/dL (0.0-1.0)
[2021-01-06] MEDS ORDERED: AZITHROMYCIN 500 MG in DEXTROSE 5% 250 ML IV ONE (14:45)
[2021-01-06] MEDS ORDERED: AZITHROMYCIN 500 MG INJ VIAL IV ONE (14:51)
--- NOTE | 2021-01-06 15:00 | NUR ---
Patient awaken at this time A&Ox2 to name/year. Patient reports "I have a headache to my right side of my head." Said made aware.
--- NOTE | 2021-01-06 15:05 | NUR ---
Dr. Rodriguez is evaluating patient at bedside.
--- NOTE | 2021-01-06 15:23 | NUR ---
Lexus burkett swab collected, walked to lab and handed to CPT. Cadence
--- NOTE | 2021-01-06 15:23 | NUR ---
Lab at bedside.
--- NOTE | 2021-01-06 16:15 | NUR ---
# 15 FR Straight catheter with utilizing sterile technique. Immediate return of 200ml clear yellow urine noted. Pt tolerated procedure well.
--- NOTE | 2021-01-06 16:15 | NUR ---
Note torey in EDM - 01/06/21 at 1924 by SARAH # 15 FR An catheter with utilizing sterile technique. Immediate return of 200ml clear yellow urine noted. Pt tolerated procedure well.
[2021-01-06 16:24] LABS: APPEARANCE,URINE CLEAR (CLEAR); BILIRUBIN,URINE NEGATIVE (NEGATIVE); BLOOD, URINE TRACE-I (NEGATIVE); COLOR,URINE YELLOW (YELLOW); LEUKOCYTE ESTERASE ,URINE NEGATIVE (NEGATIVE); NITRITE, URINE NEGATIVE (NEGATIVE); UGLUCOSE 3+ (NEGATIVE)
[2021-01-06 16:34] LABS: BARBITURATE, URINE POSITIVE ng/ml (NEG <=200); BENZODIAZEPINE, URINE NEGATIVE ng/mL (NEG <=200); CANNABINOID, URINE NEGATIVE ng/mL (NEG <=50); COCAINE, URINE NEGATIVE ng/mL (NEG <=300); OPIATE, URINE NEGATIVE ng/mL (NEG <=2000); PHENCYCLIDINE SCREEN,URINE NEGATIVE ng/mL (NEG <=25)
[2021-01-06 16:40] LABS: RBC,URINE 0-5 /HPF (0-5); WBC,URINE 0-5 /HPF (0-5)
[2021-01-06] MEDS ORDERED: metroNIDAZOLE 500 MG/NS PREMIX 100 ML IV SCH (16:55)
--- NOTE | 2021-01-06 17:12 | NUR ---
Note bernardinoone in EDM - 01/06/21 at 1718 by SARAH Patient reesting in semi-fowlers position. product promoter sales person in place. Patient A&Ox3 to name/year/place with repetitive responses. Requesting to use the restroom, advised straight catheter procedure removed 200mL urine. Bed locked in lowest position, side rails x 1, call light in reach.
--- NOTE | 2021-01-06 17:12 | NUR ---
Patient resting in semi-fowlers position. threat monitoring analyst in place. Patient A&Ox3 to name/year/place with repetitive responses. Requesting to use the restroom, advised straight catheter procedure removed 200mL urine. Bed locked in lowest position, side rails x 1, call light in reach.
[2021-01-06] MEDS ORDERED: ACETAMINOPHEN 325 MG TAB PO PRN (17:30)
[2021-01-06] MEDS ORDERED: DOCUSATE SODIUM 100 MG GELCAP PO PRN (17:30)
[2021-01-06] MEDS ORDERED: POTASSIUM CHLORIDE 10 MEQ TABER PO PRN (17:30)
[2021-01-06] MEDS ORDERED: HYDROcodone/APAP 5/325 MG 1 TAB TAB PO PRN (17:30)
[2021-01-06] MEDS ORDERED: MAGNESIUM OXIDE 400 MG TAB PO PRN (17:30)
[2021-01-06] MEDS ORDERED: MORPHINE SULFATE 2 MG/ML SYR IVP PRN (17:30)
[2021-01-06] MEDS ORDERED: SODIUM PHOS / POTASSIUM PHOS 1 PKT PDR PO PRN (17:30)
[2021-01-06] MEDS ORDERED: LORazepam 2 MG/ML VIAL IM/IVP PRN (17:30)
[2021-01-06] MEDS ORDERED: ONDANSETRON 4 MG/2 ML VIAL IM/IVP PRN (17:30)
--- NOTE | 2021-01-06 17:34 | NUR ---
Perioral care provided, +chucks and diaper applied. Patient sitting upright in bed requestin gto use the restroom. Reoriented to bed; states she understands.
[2021-01-06] MEDS ORDERED: DEXTROSE 50% 50 ML SYR IVP PRN (17:40)
[2021-01-06 17:58] LABS: PHOSPHORUS 3.1 mg/dL (2.5-4.9)
[2021-01-06] MEDS: NACL 0.9% 1,000 ML IV SCH (18:00)
[2021-01-06 18:03] LABS: PHENYTOIN (DILANTIN) < 0.5 ug/ml (10.0-20.0)
[2021-01-06 18:04] LABS: MAGNESIUM 1.8 mg/dL (1.8-2.4)
--- NOTE | 2021-01-06 18:29 | NUR ---
Patient repetitive requesting to use the restroom; pt reoriented to situation and advised of diaper in place and to void if needed. Patient states "Ok, whatever you say I can do." quality assurance monitor in place. No distress noted.
--- NOTE | 2021-01-06 19:20 | NUR ---
REPORT RECEIVED FROM SHAWN CASE FOR CONTINUATION OF PATIENT CARE AT THIS TIME.
--- NOTE | 2021-01-06 19:28 | NUR ---
Report and transfer of care given to SHAWN Crespo.
--- NOTE | 2021-01-06 19:35 | NUR ---
PATIENT LAYING IN BED LOCKED IN LOWEST POSITION W X2 SIDERAILS UP FOR PATIENT SAFETY W SEIZURE PRECAUTIONS IN PLACE. PATIENT PRESENTS AWAKE A0X3, PATIENT PERRL AT 3MM, PATIENT APPEARS CONFUSED, CONTINUES TO REPEAT ANSWERED QUESTIONS. PATIENT REPORTS GENERILIZED HEADACHE 02/03 DENIES KNOWN HEAD TRAUMA. PATIENT HAS 20 G TO L FOREARM W 0.9NS RUNNING AT 80ML/HR. VSS. PATIENT ON 2L O2 SATURATION AT 95%. BREATHING EVEN AND UNLABORED. NAD NOTED, WILL CONTINUE TO MONITOR.
[2021-01-06] MEDS: INSULIN LISPRO SLIDING SCALE 100 UNITS/ML VIAL SUBQ PRN ×2 (19:41→22:43)
[2021-01-06] MEDS: BLOOD GLUCOSE MONITORING 1 DEV DEV FS SCH (21:11)
--- NOTE | 2021-01-06 21:45 | NUR ---
PATIENT AOX3, APPEARS CONFUSED CONTINUES TO REPEAT QUESTIONS. PATIENT WANTS TO AMBULATE TO BATHROOM AND IS REFUSING TO USE DIAPER OR BED MENJIVAR. EXPLAINED TO PATIENT THE SAFETY PRECAUTIONS OF STAYING IN BED, PATIENT REFUSED AND GOT UP BEGAN TO AMBULATE TO BATHROOM. EMT ESCORTED PATIENT TO BATHROOM AND BACK TO BED FOR PATIENT SAFETY. PATIENT AMBULATED W STEADY GAIT. PATIENT CONNECTED TO MONITOR W VSS.
--- NOTE | 2021-01-06 22:00 | NUR ---
PATIENT LAYING IN BED W EYES CLOSED, L LATERAL POSITION W X2 SIDERAILS UP FOR PATIENT SAFETY W SEIZURE PRECAUTIONS IN PLACE. CONNECTED TO MONITOR W VSS. BREATHING EVEN AND UNLABORED. NAD NOTED, WILL CONTINUE TO MONITOR.
[2021-01-06] MEDS: PHENobarbital 30 MG TAB PO SCH (22:41)
[2021-01-06] MEDS: levETIRAcetam 500 MG TAB PO SCH (22:41)
--- NOTE | 2021-01-07 02:04 | NUR ---
PATIENT REPORTED HEADACHE 2/10, REQUESTING TYLENOL.
--- NOTE | 2021-01-07 03:35 | NUR ---
PATIENT REPORTS ACCIDENTALLY D/C OWN IV. 400ML VTBI LEFT OF 0.9NS.
--- NOTE | 2021-01-07 03:58 | NUR ---
PATIENT LAYING IN BED LOCKED IN LOWEST POSITION W X2 SIDERAILS UP FOR PATIENT SAFETY W SEIZURE PRECAUTIONS IN PLACE. PATIENT APPEARS TO BE RESTING, W EYES CLOSED, BREATHING EVEN AND UNLABORED. BREATHING EVEN AND UNLABORED. NAD NOTED, WILL CONTINUE TO MONITOR. VSS. PATIENT O2 SATURATION AT 95% ON ROOM AIR. BREATHING EVEN AND UNLABORED. NAD NOTED, WILL CONTINUE TO MONITOR.
--- NOTE | 2021-01-07 05:35 | NUR ---
PATIENT LAYING IN BED LOCKED IN LOWEST POSITION W X2 SIDERAILS UP FOR PATIENT SAFETY W SEIZURE PRECAUTIONS IN PLACE. PATIENT APPEARS TO BE RESTING, W EYES CLOSED, BREATHING EVEN AND UNLABORED. NAD NOTED, WILL CONTINUE TO MONITOR. VSS. PATIENT O2 SATURATION AT 97% ON ROOM AIR.
[2021-01-07] MEDS: metroNIDAZOLE 500 MG/NS PREMIX 100 ML IV SCH ×3 (06:08→21:44)
--- NOTE | 2021-01-07 07:26 | NUR ---
REPORT RECEIVED FROM SHAWN DUNN. TRANSFER OF CARE RECEIVED
--- NOTE | 2021-01-07 07:26 | NUR ---
Pt report given to SHAWN SIERRA. Transfer of care at this time.
[2021-01-07 07:49] LABS: BASOPHILS % (AUTO) 0.3 % (0.0-2.0); EOSINOPHILS % (AUTO) 0.1 % (0.0-4.0); HEMATOCRIT 42.2 % (36-48); HEMOGLOBIN 13.9 g/dL (12.0-16.0); LYMPHOCYTES # (AUTO) 3.1 K/uL (2.5-16.5); LYMPHOCYTES % (AUTO) 34.3 % (20.5-51.1); MEAN CORPUSCULAR HEMOGLOBIN 29 pg (27-31); MEAN CORPUSCULAR HGB CONC 33 g/dL (33-37); MEAN CORPUSCULAR VOLUME 86.3 fL (80-94); MONOCYTES # (AUTO) 0.6 K/uL (0.8-1.0); MONOCYTES % (AUTO) 6.6 % (1.7-9.3); NEUTROPHILS # (AUTO) 5.3 K/uL (1.8-7.7); NEUTROPHILS % (AUTO) 58.7 % (42.2-75.2); PLATELET COUNT (AUTO) 225 K/uL (140-450); RED BLOOD CELL COUNT(AUTO) 4.89 MIL/uL (4.20-5.40); RED CELL DISTRIBUTION WIDTH 14.1 % (11.6-13.7); WHITE BLOOD COUNT (AUTO) 9.1 K/uL (4.8-10.8)
[2021-01-07 07:50] LABS: ANION GAP 13.7 (8-16); CARBON DIOXIDE 21.9 mmol/L (21-32); CREATININE 0.4 mg/dL (0.6-1.3); POTASSIUM 3.6 mmol/L (3.5-5.1)
[2021-01-07] MEDS: NACL 0.9% 1,000 ML IV SCH ×2 (08:08→18:30)
[2021-01-07] MEDS: BLOOD GLUCOSE MONITORING 1 DEV DEV FS SCH ×4 (08:08→21:22)
--- NOTE | 2021-01-07 08:20 | NUR ---
[place] [phone]
[2021-01-07] MEDS: INSULIN LISPRO SLIDING SCALE 100 UNITS/ML VIAL SUBQ PRN ×4 (08:35→21:26)
--- NOTE | 2021-01-07 08:39 | NUR ---
PT CURRENTLY RESTING BEDSIDE WITH LIGHTS OFF. PT PROVIDED WITH FRESH LINEN AND GIVEN A WARM BLANKET. VITAL SIGNS STABLE AND PT STILL ON PLUSH FINISHER. WILL CONTINUE TO MONITOR PT STATUS
[2021-01-07] MEDS: PHENobarbital 30 MG TAB PO SCH ×2 (09:14→21:44)
[2021-01-07] MEDS: levETIRAcetam 500 MG TAB PO SCH ×2 (09:14→21:44)
[2021-01-07] MEDS ORDERED: WATER STERILE 10 ML MC ONE (09:18)
[2021-01-07] MEDS: PANTOPRAZOLE 40 MG INJ VIAL IVP SCH (09:22)
--- NOTE | 2021-01-07 09:23 | NUR ---
PT PROVIDED WITH CRACKERS AND MILK BEDSIDE
--- NOTE | 2021-01-07 10:10 | NUR ---
PATIENT HAS BEEN SCREENED AND CATEGORIZED MODERATE NUTRITION RISK. PATIENT WILL BE SEEN WITHIN 3-5 DAYS OF ADMISSION. 01/08/21-01/10/[address]
--- NOTE | 2021-01-07 11:47 | NUR ---
PT BS 275. GAVE 6 UNITS INSULIN PER MD ORDERS
--- NOTE | 2021-01-07 13:35 | NUR ---
PT CURRENTLY RESTING BEDSIDE WITH EYES CLOSED AND LIGHTS OFF. BED IN LOWEST POSITION WITH SIDERAIL X1 UP. VITAL SIGNS STABLE AND PT STILL ON DIAMOND WHEEL EDGER. WILL CONTINUE OT MONITOR PT
--- NOTE | 2021-01-07 14:16 | NUR ---
attempted to call pt family member on file twice and recieved message "the suscriber you called is no longer in service"
[2021-01-07] MEDS ORDERED: cefTRIAXone 1,000 MG VIAL ONE (14:23)
--- NOTE | 2021-01-07 16:38 | NUR ---
PT IS CURRENTLY RESTING BESIDE WITH EYES CLOSED AND LIGHTS OFF. BED IN LOWEST POSITION WITH SIDERAIL X2 UP. VITAL SIGNS STABLE AND PT STILL ON CUPOLA WORKER. SUGAR LEVELS HAVE BEEN CHECKED AND INSULIN HAS BEEN GIVEN. REFER TO EMR FOR SUGAR LEVEL AND INSULIN GIVEN
--- NOTE | 2021-01-07 16:42 | NUR ---
PT GLUCOSE LEVELS 250 AND GIVEN 4 UNITS OF INSULIN PER MD ORDERS
--- NOTE | 2021-01-07 17:48 | NUR ---
DANIEL DOUGHERTY CURRENTLY BEDSIDE WITH PT
--- NOTE | 2021-01-07 18:25 | NUR ---
pt provided with dinner tray bedside
--- NOTE | 2021-01-07 19:29 | NUR ---
received report from SHAWN Treviño for continuity of care
--- NOTE | 2021-01-07 19:29 | NUR ---
Pt report given to SHAWN EUGENE. Transfer of care at this time.
--- NOTE | 2021-01-07 19:30 | NUR ---
Patient appears to be resting comfortably in bed- low fowlers. Vital Signs within normal limits. Respirations even and unlabored. at bedside. Patient finished dinner. Safety measures are in place, patient on the solar pv installer, will continue to monitor patient.
--- NOTE | 2021-01-07 20:30 | NUR ---
patient ambulated to the bathroom. disconnected from the monitor and the fluids
--- NOTE | 2021-01-07 20:46 | NUR ---
patient back in the room and hooked patient back on the monitors.
--- NOTE | 2021-01-08 02:58 | NUR ---
patient ambulated to the bathroom. disconnected from the monitor and the fluids
[2021-01-08] MEDS: metroNIDAZOLE 500 MG/NS PREMIX 100 ML IV SCH ×2 (05:28→13:43)
--- NOTE | 2021-01-08 07:21 | NUR ---
Pt report given to Kristine ESCOBAR. Transfer of care at this time.
--- NOTE | 2021-01-08 07:28 | NUR ---
Pt ambulated to restroom with steady gait. Pt a&O x4. All needs met at this time. Will continue to monitor.
[2021-01-08] MEDS: NACL 0.9% 1,000 ML IV SCH (07:29)
[2021-01-08] MEDS: BLOOD GLUCOSE MONITORING 1 DEV DEV FS SCH ×3 (07:41→16:19)
[2021-01-08 08:00] VITALS: BP 155/86
--- NOTE | 2021-01-08 08:18 | NUR ---
Pt report given to SHAWN Jones. Transfer of care at this time.
--- NOTE | 2021-01-08 08:18 | NUR ---
Report given to SHAWN Jones.
--- NOTE | 2021-01-08 08:19 | NUR ---
Patient will be admitted to care of MD. Admited to Med Surge. Will go to room 131A. Belongings list completed. Report to SHAWN Jones.
--- NOTE | 2021-01-08 08:30 | NUR ---
NURSE REPORT OBTAINED REPORT FROM ICU NURSE JARED AT 0818 AND THIS NURSE ASSUMED CARE. ROOM WASN'T CLEAN AND BED IN ROOM HAD TO BE CHANGED. VSS. AFEB. BG IN ICU THIS AM- 247. NEED TO GIVE 4 UNITS HUMALOG. PATIENT ASKED TO GO HOME WHEN TRANSFERRED FROM ICU, STATING THAT SHE DON'T HAVE COVID. THIS NURSE EXPLAINED THAT SHE IS ON ANTIBIOTIC AND MUST BE TREATED FOR AN INFECTION.
[2021-01-08] MEDS: INSULIN LISPRO SLIDING SCALE 100 UNITS/ML VIAL SUBQ PRN ×3 (08:52→16:22)
[2021-01-08] MEDS: PANTOPRAZOLE 40 MG INJ VIAL IVP SCH (08:57)
[2021-01-08] MEDS: PHENobarbital 30 MG TAB PO SCH (08:58)
[2021-01-08] MEDS: levETIRAcetam 500 MG TAB PO SCH (08:58)
[2021-01-08 09:51] LABS: BASOPHILS % (AUTO) 0.4 % (0.0-2.0); EOSINOPHILS % (AUTO) 0.1 % (0.0-4.0); HEMOGLOBIN 14.4 g/dL (12.0-16.0); LYMPHOCYTES # (AUTO) 2.3 K/uL (2.5-16.5); LYMPHOCYTES % (AUTO) 28.1 % (20.5-51.1); MEAN CORPUSCULAR HEMOGLOBIN 29 pg (27-31); MEAN CORPUSCULAR HGB CONC 34 g/dL (33-37); MEAN CORPUSCULAR VOLUME 84.7 fL (80-94); MONOCYTES # (AUTO) 0.5 K/uL (0.8-1.0); MONOCYTES % (AUTO) 6.2 % (1.7-9.3); NEUTROPHILS # (AUTO) 5.2 K/uL (1.8-7.7); NEUTROPHILS % (AUTO) 65.2 % (42.2-75.2); PLATELET COUNT (AUTO) 214 K/uL (140-450); RED BLOOD CELL COUNT(AUTO) 5.07 MIL/uL (4.20-5.40)
[2021-01-08 10:07] LABS: CARBON DIOXIDE 25.6 mmol/L (21-32); CREATININE 0.5 mg/dL (0.6-1.3); POTASSIUM 3.6 mmol/L (3.5-5.1)
--- NOTE | 2021-01-08 11:58 | NUR ---
RECEIVED BEDSIDE REPORT FROM DEYA DAY SHIFT NURSE FOR CONTINUITY OF CARE. PT IS AWAKE AND ALERT. A&OX4. ON RA WITH BREATHING UNLABORED. PT IS CONTINENT OF THE BOWEL AND BLADDER. SKIN IS WARM, DRY, AND INTACT. IV IS IN THE LEFT FA 20 GAUGE RUNNING FLUIDS ORDERED. PT IS STABLE AT THIS TIME. PLAN OF CARE DISCUSSED.
--- NOTE | 2021-01-08 11:58 | NUR ---
NURSE REPORT REPORT GIVEN TO OTHER DAY SHIFT NURSE TO ASSUME CARE OF PATIENT. SBAR GIVEN AND ALL QUESTIONS ANSWERED.
[2021-01-08 12:00] VITALS: BP 128/83
--- NOTE | 2021-01-08 12:37 | NUR ---
DC PLANNING: CM SPOKE WITH MAURO OLSEN FROM [facility], ([phone]) GAVE UPDATED CLINICALS INCLUDING CLEARANCE FROM THE NEUROLOGIST. CM ALSO SPOKE WITH THE PATIENT AT BEDSIDE, RESPONSES WERE DELAYED AND PATIENT WAS NOT ABLE TO CONFIRM SOME INFORMATION. THE PATIENT CONFIRMED HER HOME ADDRESS, STATES IT IS A GROUND FLOOR APARTMENT BUT THERE IS NO APARTMENT NUMBER, POSSIBLY A CONDO. THE PATIENT LIVES WITH HER BOYFRIEND AND ANOTHER FRIEND, AND IS ON SSI BECAUSE OF HER SEIZURES. NO H/O HOME HEALTH OR DME, FOLLOWS UP WITH HER PCP EVERY 3-4 MONTHS. THE PATIENT WAS UNABLE TO CONFIRM HER PHONE NUMBER OR CONTACT NUMBERS. THE PATIENT THINKS THAT SHE AND HER BOYFRIEND RECEIVE ASSISTANCE FROM [employer] BUT WASN'T SURE. THE PATIENT USES THE BUS SYSTEM TRANSPORT TO APPOINTMENTS AND SHOPPING. DC PLAN IS FOR PATIENT TO RETURN HOME, CM WILL FOLLOW FOR NEEDS.
--- NOTE | 2021-01-08 13:30 | NUR ---
PT IS AWAKE AND ALERT. SPEAKING APPROPRIATELY. IV IS PATENT AND INTACT. NO DISTRESS NOTED AT THIS TIME. PT IS STABLE.
--- NOTE | 2021-01-08 13:50 | NUR ---
BS READING IS 292. HUMALOG INSULIN, 6 UNITS, WAS GIVEN PER SLIDING SCALE. MEDICATION EDUCATION WAS PROVIDED AND PT VERBALIZED UNDERSTANDING.
--- NOTE | 2021-01-08 15:00 | NUR ---
ROUNDED ON PT. SHE IS SLEEPING. BREATHING IS UNLABORED ON RA. NO PAIN NOTED. IV IS PATENT AND INFUSING ORDERED. WILL CONTINUE TO MONITOR.
[2021-01-08 16:00] VITALS: BP 108/71
--- NOTE | 2021-01-08 16:22 | NUR ---
BS READING IS 248. HUMALOG INSULIN, 4 UNITS, WAS GIVEN PER SLIDING SCALE. PT IS STABLE AT THIS TIME.
[2021-01-08] MEDS ORDERED: AZIT250T11 PO (16:55)
[2021-01-08 17:47] VITALS: BP 108/71
--- NOTE | 2021-01-08 18:45 | NUR ---
PT IS DISCHARGED FROM THE HOSPITAL. ID BAND WAS REMOVED. IV WAS ALSO REMOVED AND BLEEDING WAS CONTROLLED. PT CHANGED INTO OWN CLOTHING. VS ARE STABLE. GAIT IS STEADY. SHE IS ACCOMPANIED BY HER BOYFRIEND SHE CALLS HIM. NO DISTRESS NOTED. DISCHARGE INSTRUCTIONS PROVIDED AND PAPERWORK SIGNED. PT HAS LEFT THE BUILDING.
== END 2021-01-08 19:10 | disposition home or self-care (01) | DRG 720 ==
LOC: MED 12:45 → MTU 16:57 → MMU 01-08 04:40
PROVIDERS: ADMIT Hospitalist; ATTEND Hospitalist
DX: A41.9 Sepsis, unspecified organism (principal); J96.01 Acute respiratory failure with hypoxia; J69.0 Pneumonitis due to inhalation of food and vomit; R65.20 Severe sepsis without septic shock; I10 Essential (primary) hypertension; Z20.822 Contact with and (suspected) exposure to COVID-19; E11.65 Type 2 diabetes mellitus with hyperglycemia; G40.909 Epilepsy, unspecified, not intractable, without status epilepticus; Z88.8 Allergy status to other drugs, medicaments and biological substances
CPT/HCPCS: 36415; 70450; 71045; 80048; 80053; 80173; 80184; 80185; 80305; 81001; 82803; 83036; 83605; 83690; 83735; 83880; 84100; 84484; 84703; 85025; 87040; 87081; 93005; 96361; 96365; 96367; 96368; 99291; C9113; G0480; G0482; J0456; J0696; J1644; J1953; J2270; J3490; J7060; U0003

== ENCOUNTER 2022-01-21 21:06 | Emergency (ER) | payer MEDICAID ==
[~2022-01-21] VITALS: Ht 170.2 cm; Wt 78.0 kg
[~2022-01-21 21:06] MED LIST changes: +AZIT250T11 PO; -GLIP10TA3 PO; -METF500T PO
[2022-01-21 21:14] VITALS: BP 188/116
--- NOTE | 2022-01-21 21:18 | NUR ---
PT BIBA BLS. TAKEN TO BED 9
[2022-01-21] MEDS ORDERED: ENALAPRILAT 2.5 MG/2 ML VIAL IVP ONE (21:35)
[2022-01-21] MEDS ORDERED: NACL 0.9% 1,000 ML IV ONE (21:35)
[2022-01-21] MEDS ORDERED: LORazepam 1 MG TAB PO ONE (21:50)
--- NOTE | 2022-01-21 21:51 | NUR ---
PT RETURN FROM CT
[2022-01-21 21:52] LABS: BASOPHILS # (AUTO) 0.1 K/uL (0.00-0.22); BASOPHILS % (AUTO) 0.4 % (0.0-2.0); EOSINOPHILS % (AUTO) 0.2 % (0.0-4.0); HEMATOCRIT 44.1 % (36-48); HEMOGLOBIN 14.6 g/dL (12.0-16.0); LYMPHOCYTES # (AUTO) 2.2 K/uL (2.5-16.5); LYMPHOCYTES % (AUTO) 16.3 % (20.5-51.1); MEAN CORPUSCULAR HEMOGLOBIN 28 pg (27-31); MEAN CORPUSCULAR HGB CONC 33 g/dL (33-37); MEAN CORPUSCULAR VOLUME 85.3 fL (80-94); MONOCYTES # (AUTO) 0.6 K/uL (0.8-1.0); MONOCYTES % (AUTO) 4.6 % (1.7-9.3); NEUTROPHILS # (AUTO) 10.4 K/uL (1.8-7.7); NEUTROPHILS % (AUTO) 78.5 % (42.2-75.2); PLATELET COUNT (AUTO) 278 K/uL (140-450); RED BLOOD CELL COUNT(AUTO) 5.18 MIL/uL (4.20-5.40); RED CELL DISTRIBUTION WIDTH 14.2 % (11.6-13.7); WHITE BLOOD COUNT (AUTO) 13.2 K/uL (4.8-10.8)
[2022-01-21 21:57] LABS: ANION GAP 13.2 (8-16); CARBON DIOXIDE 23.6 mmol/L (21-32); CREATININE 0.5 mg/dL (0.6-1.3); POTASSIUM 3.8 mmol/L (3.5-5.1)
--- NOTE | 2022-01-21 22:15 | NUR ---
Dr. Orellana examining patient.
[2022-01-21] MEDS ORDERED: KETOROLAC 30 MG/ML VIAL IVP ONE (22:20)
[2022-01-21 23:14] VITALS: BP 164/98
[2022-01-21] MEDS ORDERED: IBUP-2213 PO (23:25)
[2022-01-21] MEDS ORDERED: ATA25 PO (23:25)
--- NOTE | 2022-01-21 23:28 | NUR ---
d/c with VSS. d/c education given. oppportunity to ask questions given and answered. IV site removed, bleeding controlled with sterile gauze and reinforced with tape. rx of atarax and ibuprofen given.
== END 2022-01-21 23:28 | disposition home or self-care (01) ==
LOC: MED 21:06
DX: I10 Essential (primary) hypertension (principal); R51.9 Headache, unspecified; E11.9 Type 2 diabetes mellitus without complications; Z86.69 Personal history of other diseases of the nervous system and sense organs; Z90.49 Acquired absence of other specified parts of digestive tract; Z98.890 Other specified postprocedural states; Z79.899 Other long term (current) drug therapy; Z79.1 Long term (current) use of non-steroidal anti-inflammatories (NSAID); Z79.2 Long term (current) use of antibiotics; Z88.8 Allergy status to other drugs, medicaments and biological substances
CPT/HCPCS: 36415; 70450; 80048; 81002; 81025; 85025; 96365; 96375; 99284; J1885; J3490; J7030

== ENCOUNTER 2022-01-25 14:45 | Emergency (ER) | payer MEDICAID ==
[~2022-01-25] VITALS: Ht 157.5 cm; Wt 81.6 kg
[~2022-01-25 14:45] MED LIST changes: +ATA25 PO; +IBUP-2213 PO
--- NOTE | 2022-01-25 14:57 | NUR ---
PT W/C ASSISTED TO BED 8.
[2022-01-25 14:58] VITALS: BP 169/110
[2022-01-25] MEDS ORDERED: LORazepam 2 MG/ML VIAL IVP ONE (15:15)
[2022-01-25] MEDS ORDERED: LORazepam 2 MG/ML VIAL IM ONE (15:30)
[2022-01-25] MEDS ORDERED: NACL 0.9% 2,000 ML IV ONE (15:30)
--- NOTE | 2022-01-25 15:35 | NUR ---
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 negative at this time. ermd made aware. xray notified at this time
--- NOTE | 2022-01-25 15:40 | NUR ---
pt becoming restless and refusing to lay or sit in bed. seizure precautions in place. pt states she needs to walk around. informed pt that it is currently a fall risk in current condition. pt refusing to sit, security has been called at this time.
--- NOTE | 2022-01-25 15:45 | NUR ---
pt pulled iv at this time and is refusing further care. ermd made aware to speak to pt about leaving [facility].
--- NOTE | 2022-01-25 15:54 | NUR ---
pt requesting to leave at this time. gloria made aware
--- NOTE | 2022-01-25 16:00 | NUR ---
Patient does not wish to proceed with medical care recommended by Dr. Hernandez. Patient given information related to possible complications, up to and including , which could occur as a result of leaving hospital at this time. Patient verbalizes understanding of risks involved leaving against medical advice. Patient has signed AMA form.
[2022-01-25 16:04] LABS: BASOPHILS # (AUTO) 0.1 K/uL (0.00-0.22); BASOPHILS % (AUTO) 0.8 % (0.0-2.0); HEMATOCRIT 41.3 % (36-48); HEMOGLOBIN 13.9 g/dL (12.0-16.0); LYMPHOCYTES # (AUTO) 2.5 K/uL (2.5-16.5); LYMPHOCYTES % (AUTO) 17.3 % (20.5-51.1); MEAN CORPUSCULAR HEMOGLOBIN 29 pg (27-31); MEAN CORPUSCULAR HGB CONC 34 g/dL (33-37); MEAN CORPUSCULAR VOLUME 84.6 fL (80-94); MONOCYTES # (AUTO) 0.8 K/uL (0.8-1.0); MONOCYTES % (AUTO) 5.9 % (1.7-9.3); NEUTROPHILS # (AUTO) 10.8 K/uL (1.8-7.7); PLATELET COUNT (AUTO) 303 K/uL (140-450); RED BLOOD CELL COUNT(AUTO) 4.89 MIL/uL (4.20-5.40); RED CELL DISTRIBUTION WIDTH 14.4 % (11.6-13.7); WHITE BLOOD COUNT (AUTO) 14.2 K/uL (4.8-10.8)
[2022-01-25 16:17] LABS: ALBUMIN 3.1 g/dL (3.4-5.0); ANION GAP 15.3 (8-16); CARBON DIOXIDE 24.6 mmol/L (21-32); CREATININE 0.6 mg/dL (0.6-1.3); POTASSIUM 3.9 mmol/L (3.5-5.1); TOTAL BILIRUBIN 0.2 mg/dL (0.0-1.0)
--- NOTE | 2022-01-25 16:44 | NUR ---
The patient's care was reviewed and supervised by Jessica Murillo, RN, RN.
== END 2022-01-25 16:00 | disposition left against medical advice (07) ==
LOC: MED 14:45
DX: R56.9 Unspecified convulsions (principal); R07.89 Other chest pain; E11.9 Type 2 diabetes mellitus without complications; I10 Essential (primary) hypertension; Z79.4 Long term (current) use of insulin; Z79.899 Other long term (current) drug therapy
CPT/HCPCS: 36415; 80053; 81025; 82948; 83605; 84484; 85025; 87040; 96372; 99283; J2060

== ENCOUNTER 2022-01-27 11:54 | Emergency (ER) | payer MEDICAID ==
--- NOTE | 2022-01-27 12:03 | NUR ---
CALLED PATIENT TO TRIAGE, IN TRIAGE PATIENT STATES SHE NO LONGER WISHES TO BE SEEN AND WALKED OUT TO LOBBY
--- NOTE | 2022-01-27 12:03 | NUR ---
PATIENT LEFT WITHOUT BEING SEEN BY DR. JENKINS. NO FURTHER CARE PROVIDED FOR PATIENT.
== END 2022-01-27 12:03 | disposition left against medical advice (07) ==
LOC: MED 11:54
DX: F41.9 Anxiety disorder, unspecified (principal); Z53.21 Procedure and treatment not carried out due to patient leaving prior to being seen by health care provider

== ENCOUNTER 2022-04-23 19:19 | Emergency (ER) | payer MEDICAID ==
[~2022-04-23] VITALS: Ht 154.9 cm; Wt 82.1 kg
[2022-04-23 19:26] VITALS: BP 148/80
--- NOTE | 2022-04-23 19:34 | NUR ---
PT EDGAR ALS. TAKEN TO BED 7
[2022-04-23] MEDS ORDERED: NACL 0.9% 1,000 ML IV ONE (19:40)
--- NOTE | 2022-04-23 19:55 | NUR ---
Dr. Martinez examining patient.
[2022-04-23 20:44] LABS: APPEARANCE,URINE CLEAR (CLEAR); BILIRUBIN,URINE NEGATIVE (NEGATIVE); BLOOD, URINE 2+ (NEGATIVE); COLOR,URINE YELLOW (YELLOW); LEUKOCYTE ESTERASE ,URINE NEGATIVE (NEGATIVE); NITRITE, URINE NEGATIVE (NEGATIVE); PH,URINE 5.5 (5.0-9.0); UGLUCOSE 3+ (NEGATIVE)
[2022-04-23 20:54] LABS: RBC,URINE 0-5 /HPF (0-5); WBC,URINE 0-5 /HPF (0-5)
[2022-04-23 21:01] LABS: BASOPHILS # (AUTO) 0.1 K/uL (0.00-0.22); BASOPHILS % (AUTO) 0.9 % (0.0-2.0); EOSINOPHILS % (AUTO) 0.1 % (0.0-4.0); HEMATOCRIT 38.6 % (36-48); HEMOGLOBIN 12.9 g/dL (12.0-16.0); LYMPHOCYTES # (AUTO) 2.7 K/uL (2.5-16.5); LYMPHOCYTES % (AUTO) 30.2 % (20.5-51.1); MEAN CORPUSCULAR HEMOGLOBIN 28 pg (27-31); MEAN CORPUSCULAR HGB CONC 33 g/dL (33-37); MEAN CORPUSCULAR VOLUME 84.8 fL (80-94); MONOCYTES # (AUTO) 0.6 K/uL (0.8-1.0); MONOCYTES % (AUTO) 6.6 % (1.7-9.3); NEUTROPHILS # (AUTO) 5.5 K/uL (1.8-7.7); NEUTROPHILS % (AUTO) 62.2 % (42.2-75.2); PLATELET COUNT (AUTO) 285 K/uL (140-450); RED BLOOD CELL COUNT(AUTO) 4.55 MIL/uL (4.20-5.40); WHITE BLOOD COUNT (AUTO) 8.8 K/uL (4.8-10.8)
[2022-04-23 21:21] LABS: ALBUMIN 2.7 g/dL (3.4-5.0); ANION GAP 13.2 (8-16); ASPARTATE AMINOTRANSFERASE 23 U/L (15-37); CARBON DIOXIDE 24.6 mmol/L (21-32); CHLORIDE 98 mmol/L (98-107); CREATININE 0.6 mg/dL (0.6-1.3); GFR ARICAN-AMERICAN 140 mL/min (>90); POTASSIUM 4.8 mmol/L (3.5-5.1); SODIUM SERUM 131 mmol/L (136-145); TOTAL BILIRUBIN 0.2 mg/dL (0.0-1.0); UREA NITROGEN, BLOOD 21 mg/dL (7-18)
[2022-04-23 21:23] LABS: GLUCOSE 490 mg/dL (74-106)
[2022-04-23 21:25] LABS: ACETONE, SERUM NEGATIVE (NEGATIVE)
[2022-04-23] MEDS ORDERED: INSULIN REGULAR, HUMAN 100 UNIT/ML VIAL SUBQ ONE (21:30)
[2022-04-23 23:05] VITALS: BP 148/80
== END 2022-04-23 23:15 | disposition home or self-care (01) ==
LOC: MED 19:19
DX: E11.65 Type 2 diabetes mellitus with hyperglycemia (principal); I10 Essential (primary) hypertension; Z79.4 Long term (current) use of insulin; Z79.899 Other long term (current) drug therapy; Z88.8 Allergy status to other drugs, medicaments and biological substances
CPT/HCPCS: 36415; 80053; 81001; 82009; 85025; 96372; 99283; J1815

== ENCOUNTER 2023-01-03 00:02 | Observation (INO) | payer MEDICAID ==
[~2023-01-03] VITALS: Ht 157.5 cm; Wt 83.9 kg
[2023-01-03 00:52] VITALS: BP 139/68; PULSE 108; RESP 18; TEMP 98.1
[2023-01-03 01:22] LABS: APPEARANCE,URINE CLEAR (CLEAR); BILIRUBIN,URINE NEGATIVE (NEGATIVE); BLOOD, URINE NEGATIVE (NEGATIVE); COLOR,URINE YELLOW (YELLOW); LEUKOCYTE ESTERASE ,URINE NEGATIVE (NEGATIVE); NITRITE, URINE NEGATIVE (NEGATIVE); PH,URINE 5.5 (5.0-9.0); PROTEIN,URINE NEGATIVE (NEGATIVE); UGLUCOSE 3+ (NEGATIVE); UROBILINOGEN,URINE 0.2 EU/dL (0.2 - 1)
[2023-01-03 01:32] LABS: BACTERIA,URINE OCCASSIONAL /HPF (None Seen); RBC,URINE 0-5 /HPF (0-5)
[2023-01-03 01:33] LABS: SQUAMOUS EPITHELIAL CELL,UR 4-10 (MOD) /LPF (0-3 (FEW)); YEAST,URINE Rare /HPF (None Seen)
== END 2023-01-03 01:55 ==
LOC: MLD 00:02
PROVIDERS: ADMIT Obstetrics & Gynecology; ATTEND Obstetrics & Gynecology
DX: O26.892 Other specified pregnancy related conditions, second trimester (principal); R10.9 Unspecified abdominal pain; Z20.822 Contact with and (suspected) exposure to COVID-19; R51.9 Headache, unspecified; Z3A.18 18 weeks gestation of pregnancy
CPT/HCPCS: 76805; 81001; 81025; 87086; 87426; G0378; Q0092

== ENCOUNTER 2023-01-03 02:05 | Emergency (ER) | payer MEDICAID ==
[~2023-01-03] VITALS: Ht 165.1 cm; Wt 113.4 kg
[2023-01-03 02:07] VITALS: BP 144/88; PULSE 109; RESP 18; TEMP 97.4; O2SAT 95
[2023-01-03 02:17] VITALS: O2SAT 95
== END 2023-01-03 02:30 | disposition home or self-care (01) ==
LOC: MED 02:05
DX: R10.9 Unspecified abdominal pain (principal); E11.9 Type 2 diabetes mellitus without complications; F20.9 Schizophrenia, unspecified; Z88.8 Allergy status to other drugs, medicaments and biological substances; Z79.899 Other long term (current) drug therapy; Z79.4 Long term (current) use of insulin
CPT/HCPCS: 99281